=== PATIENT | male | born 1980 | race Caucasian/White ===

== ENCOUNTER 2018-01-08 07:15 | Day surgery (SDC) | payer OTHER ==
[2018-01-08] MEDS ORDERED: LACTATED RINGERS 1,000 ML IV ONE ×2 (07:32→08:59)
[2018-01-08] MEDS ORDERED: BUPIVACAINE 0.5% PF 30 ML VIAL SUBQ ONE ×4 (07:52→08:53)
[2018-01-08] MEDS ORDERED: ceFAZolin 2 GM/50 ML 2 GM/50 ML BAG IV ONE (07:57)
[2018-01-08] MEDS ORDERED: BUPIVACAINE 0.5% PF 30 ML VIAL ONE ×2 (08:04→10:22)
[2018-01-08] MEDS ORDERED: ONDANSETRON 4 MG/2 ML VIAL IVP ONE (10:45)
[2018-01-08] MEDS ORDERED: NEOSTIGMINE 1 MG/1 ML 10 ML MDV IVP ONE (10:45)
[2018-01-08] MEDS ORDERED: ACETAMINOPHEN 1,000 MG/100 ML 100 ML IV ONE (10:45)
[2018-01-08] MEDS ORDERED: fentaNYL 100 MCG/2 ML VIAL IVP ONE (10:45)
[2018-01-08] MEDS ORDERED: LIDOCAINE-MPF 2% 5 ML VIAL IM ONE (10:45)
[2018-01-08] MEDS ORDERED: PROPOFOL 1000 MG/100 ML IV ONE (10:45)
[2018-01-08] MEDS ORDERED: ROCURONIUM 50 MG/5 ML VIAL IVP ONE (10:45)
[2018-01-08] MEDS ORDERED: GLYCOPYRROLATE 1 MG/5 ML VIAL IVP ONE (10:45)
[2018-01-08] MEDS ORDERED: ONDANSETRON 4 MG/2 ML VIAL ONE (11:13)
[2018-01-08] MEDS ORDERED: HYDROcod/ACETAM 5/325 MG TABLET ONE (12:10)
[2018-01-08 12:56] VITALS: BP 125/75
--- NOTE | 2018-01-12 10:33 | OPERATIVE REPORT ---
DATE OF SERVICE: 01/08/2018 Physician: Jesus Chin MD PRIMARY CARE PROVIDER: PREOPERATIVE DIAGNOSIS: Right inguinal hernia. POSTOPERATIVE DIAGNOSIS: Bilateral inguinal hernia. OPERATING SURGEON: Jesus Chin MD ANESTHESIA: General. INDICATIONS FOR PROCEDURE: Patient is a 37-year-old male who presents with pain in the right groin. On physical exam, he has a right inguinal hernia that is reducible. FINDINGS AT SURGERY: Patient had an indirect right inguinal hernia being present. He also had a direct left inguinal hernia being present. The hernias were repaired with bilateral ProGrip self-adhering laparoscopic mesh 15 x 10 cm. DESCRIPTION OF PROCEDURE: After informed consent was obtained, patient was taken to the operating room and placed in a supine position. General endotracheal anesthesia was then administered. Patient's abdomen was then prepped and draped in the usual sterile fashion. Prior to making any abdominal incision, the skin was injected with local anesthesia. An infraumbilical incision was made in the skin using a scalpel. It was carried down to the fascial layer using electrocautery. The anterior rectus sheath was then incised left laterally. A space was then developed in the retrorectus space with a finger. The dissecting balloon was then inserted through this opening, underneath the rectus muscle, and down to the pubic bone. The balloon was then insufflated under direct vision and then removed after I had dissected the preperitoneal space. The holding balloon was then inserted into the retrorectus space, with the balloon then being insufflated. The preperitoneal space was then insufflated. A 5 mm port was placed on either side of midline just below the umbilical port site. Attention was turned to the right side. The patient had an indirect right inguinal hernia. The peritoneum was then removed from the internal inguinal ring and off the vas deferens and testicular vessels. This was done back to the anterior superior iliac spine. The pubic bone was also cleared of any loose areolar tissue. Attention was then turned to the left side. The peritoneum was then dissected off the vas deferens and testicular vessels. There did not appear to be indirect hernia on this side. However, the patient had a small direct hernia on the left side. Again, the tissue was dissected back to the anterior superior iliac spine. ProGrip mesh laparoscopic 15 x 10 was placed into both myopectineal orifices covering the pubic bone and internal ring , as well as the floor of the inguinal canal. Marcaine 10 mL was then squirted over the cord structures bilaterally. The preperitoneal space was then desufflated and, looking inside, the mesh stayed in good position. The ports were then removed. The fascial defect at the umbilicus was then closed using running 0 Vicryl suture. Skin incisions were closed using 4-0 Monocryl subcuticular stitch. Dermabond was then applied. The patient was then awakened, extubated, and taken from the recovery room in stable condition. ESTIMATED BLOOD LOSS: Less than 5 mL. COMPLICATIONS: None. CONDITION OF THE PATIENT AFTER THE PROCEDURE: Stable. SPECIMENS: None. DRAINS/PACKS: None. CLASSIFICATION OF WOUND: Clean. TD: 01/08/2018 13:27 MTDD
== END 2018-01-08 07:16 | disposition home or self-care (01) ==
LOC: SDS 07:15
PROVIDERS: ATTEND Surgery
PROC: 0YUA4JZ Supplement Bilateral Inguinal Region with Synthetic Substitute, Percutaneous Endoscopic Approach (ICD-10-PCS; principal; 2018-01-08 08:15)
DX: K40.20 Bilateral inguinal hernia, without obstruction or gangrene, not specified as recurrent (principal); Z87.891 Personal history of nicotine dependence
CPT/HCPCS: 49650; A9270; J0131; J0690; J7120

== ENCOUNTER 2018-07-19 12:13 | Outpatient (CLI) | payer OTHER ==
--- NOTE | 2018-07-20 06:37 | XRAY Report ---
Reason: PAIN AFTER TRAUMA Procedure Date: 07/19/2018 Accession Number: [id number] / [id number] Procedure: XR - Hand 3 View RT CPT Code: FULL RESULT: EXAM: RIGHT HAND RADIOGRAPHY EXAM DATE: 07/19/2018 01:00 PM. CLINICAL HISTORY: Pain after trauma. COMPARISON: None. TECHNIQUE: 3 views. FINDINGS: Bones: Normal. No fractures or bone lesions. Joints: Normal. No subluxations. Soft Tissues: Normal. No soft tissue swelling. IMPRESSION: Normal hand radiography. RADIA
== END 2018-07-19 12:14 | disposition home or self-care (01) ==
LOC: DI 12:13
PROVIDERS: ATTEND Internal Medicine
DX: M79.641 Pain in right hand (principal)

== ENCOUNTER 2022-05-06 08:00 | Outpatient (CLI) | payer OTHER ==
--- NOTE | 2022-05-06 13:18 | XRAY Report ---
PROCEDURE: Clavicle LT INDICATIONS: Clavicle fracture TECHNIQUE: 2 views of the clavicle were acquired. COMPARISON: Left clavicle radiographs 03/27/2022. FINDINGS: Bones: Anatomic alignment post-ORIF of the left clavicle. No dislocation. AC joint is within normal limits. No suspicious bony lesions. Soft tissues: No suspicious soft tissue calcifications. IMPRESSION: Expected appearance of the left clavicle ORIF. Reviewed by: Manjeet Chavez MD on 05/06/2022 1:17 PM PDT Approved by: Manjeet Chavez MD on 05/06/2022 1:17 PM PDT Station ID: [id number]
== END 2022-05-06 23:59 | disposition home or self-care (01) ==
LOC: DI.WOS 08:00
PROVIDERS: ATTEND Physician Assistant Surgical
DX: S42.022A Displaced fracture of shaft of left clavicle, initial encounter for closed fracture (principal)

== ENCOUNTER 2023-11-01 06:48 | Outpatient (CLI) | payer OTHER ==
--- NOTE | 2023-11-01 13:02 | Ultrasound Report ---
PROCEDURE: Testicle INDICATIONS: MASS OF TESTICLE TECHNIQUE: Real-time scanning was performed of the scrotum and testicles, with image documentation. Color and p ulse Doppler interrogation was performed of both testicles. COMPARISON: None. FINDINGS: Right: Testicle is normal in size at 4.2 x 2.0 x 2.9 cm, and homogenous in echotexture. Epididymis is normal in overall size and morphology. No hydrocele. No varicoceles. Overlying scrotal skin is n ormal in thickness. Left: Testicle is normal in size at 4.5 x 2.0 x 2.8 cm, and homogeneous in echotexture. Epididymis is normal in overall size and morphology. No hydrocele. No varicoceles. Overlying scrotal skin is n ormal in thickness. There is a left epididymal cyst corresponding to the area palpable abnormality m easuring 1.3 x 1.2 x 1.1 cm. It contains echogenic debris. Doppler: Color and pulse Doppler demonstrate normal and symmetric arterial flow in both testicles. IMPRESSION: Palpable lesion is a benign lesion, likely an epididymal cyst with debris. Otherwise unremarkable kenyetta dy. Reviewed by: Lamonte Wadsworth MD on 11/01/2023 1:01 PM PDT Approved by: Lamonte Wadsworth MD on 11/01/2023 1:01 PM PDT Station ID: [id number]
== END 2023-11-01 06:49 | disposition home or self-care (01) ==
LOC: DI 06:48
PROVIDERS: ATTEND Internal Medicine
DX: N50.89 Other specified disorders of the male genital organs (principal)